=== PATIENT | male | born 1975 | race Caucasian/White ===

== ENCOUNTER → 2018-05-02 | Outpatient (CLI) | payer OTHER | END | disposition home or self-care (01) | LOC: PNCL 08:23 | DX: M79.605 Pain in left leg (principal); M79.604 Pain in right leg; M54.5 Low back pain; I10 Essential (primary) hypertension; K21.9 Gastro-esophageal reflux disease without esophagitis; M19.90 Unspecified osteoarthritis, unspecified site | CPT/HCPCS: 99214 ==

== ENCOUNTER → 2018-05-19 | Outpatient (CLI) | payer OTHER ==
[~2018-05-19] MED LIST: IOHEXOL 180 MG/ML 10 ML VIAL.; LIDOCAINE 1% PF 2 ML VIAL.; methylPREDNISolone ACETATE 40 MG/ML VIAL.; methylPREDNISolone ACETATE 80 MG/ML VIAL.
== END ==
LOC: PNCL 08:45
DX: M51.16 Intervertebral disc disorders with radiculopathy, lumbar region (principal); M48.061 Spinal stenosis, lumbar region without neurogenic claudication; I10 Essential (primary) hypertension; K21.9 Gastro-esophageal reflux disease without esophagitis; M19.90 Unspecified osteoarthritis, unspecified site; Z79.899 Other long term (current) drug therapy
CPT/HCPCS: 62323; J1030; J1040; Q9965

== ENCOUNTER → 2018-05-31 | Outpatient (CLI) | payer OTHER | END | disposition home or self-care (01) | LOC: PNCL 08:58 | DX: M51.16 Intervertebral disc disorders with radiculopathy, lumbar region (principal); M48.061 Spinal stenosis, lumbar region without neurogenic claudication; I10 Essential (primary) hypertension; K21.9 Gastro-esophageal reflux disease without esophagitis | CPT/HCPCS: 99212 ==

== ENCOUNTER → 2018-06-13 | Outpatient (CLI) | payer OTHER ==
[~2018-06-13] MED LIST changes: -LIDOCAINE 1% PF 2 ML VIAL.; +LIDOCAINE 2% PF 2ML VIAL.
== END | disposition home or self-care (01) ==
LOC: PNCL 08:57
DX: M51.16 Intervertebral disc disorders with radiculopathy, lumbar region (principal); M48.061 Spinal stenosis, lumbar region without neurogenic claudication; Z79.899 Other long term (current) drug therapy; I10 Essential (primary) hypertension; K21.9 Gastro-esophageal reflux disease without esophagitis; M19.90 Unspecified osteoarthritis, unspecified site
CPT/HCPCS: 62323; J1030; J1040; J2001; Q9965

== ENCOUNTER → 2018-06-24 | Outpatient (CLI) | payer OTHER ==
[~2018-06-24] MED LIST changes: +CYAN500T40 SL; +HYDR-2762 PO; -IOHEXOL 180 MG/ML 10 ML VIAL.; -LIDOCAINE 2% PF 2ML VIAL.; +RANI300T3 PO; -methylPREDNISolone ACETATE 40 MG/ML VIAL.; -methylPREDNISolone ACETATE 80 MG/ML VIAL.
--- NOTE | 2018-06-24 11:09 | PAIN ---
DATE OF SERVICE: 06/24/2018 PROGRESS NOTE FOR PAIN CLINIC DIAGNOSES: Lumbar radiculopathy with lumbar spinal stenosis and lumbar degenerative disk disease. HISTORY OF PRESENT ILLNESS: The patient is a 42-year-old male who returns for followup status post lumbar epidural steroid injection x 2. The patient reports about 70% improvement overall; now about 60% improvement even today. The patient reports improvement is lasting significantly. The patient states it has been about 3 weeks since his last injection, doing quite well. The pain in the leg is much improved. His foot numbness has gone. Leg issues are essentially resolved. Still some pain on the right side, radiating into the posterior gluteus and posterior thigh in a radicular fashion, but very minimal. The patient reports it is a 3 on a scale of 10 at its worst, 3 on average, 1 at its least and it is a 1 today. The patient reports it is dull, alternating with tight with some pain in the muscles in the low back as well. The patient reports he has been sleeping better at night, had been increasing activity at home as well as returning to work, with some restrictions on lifting of 20 pounds, but doing very well. He has been very careful with his back also, which is helping as well. The patient reports no new motor or sensory deficits. No new bowel or bladder incontinence or other complaints. PHYSICAL EXAMINATION: VITAL SIGNS: The patient's blood pressure is 151/111, pulse 80, respirations 16 and temperature 98.2 degrees Fahrenheit. Weight is 251 pounds. GENERAL: The patient is awake, alert, oriented, appropriate, very pleasant demeanor. HEENT EXAMINATION: Shows normocephalic, atraumatic. Extraocular movements are intact and symmetrical. Oral cavity, mucous membranes are moist and pink. Dentition is intact. NECK: Shows anterior throat supple, without palpable lymphadenopathy noted. Swallow reflex is symmetrical. CHEST: Shows normal on inspection. Breath sounds are clear to auscultation bilaterally. HEART: Shows S1, S2 clear. No murmurs auscultated. BACK: The patient's back shows spine grossly in the midline. Normal-appearing thoracic kyphosis and lumbar lordotic curvature. Lumbar paraspinous muscle shows symmetrical on inspection. On palpation, it shows some moderate tenderness, but only diffusely and very moderately in the low lumbar distribution, slightly more on the right than the left. There is no tenderness over the sacrum, sacroiliac regions or the spinous processes. The patient has good rotational motion of the lumbar spine both laterally as well as extension and flexion without difficulty. LOWER EXTREMITIES: Show deep tendon reflexes at 2+ in the patellar, 1+ in tendo calcaneus tendons. Motor exam is strong with 5/5 dorsiflexion and extension. Peripheral pulses are 1+ posterior tibia. No peripheral edema is noted bilaterally. The patient's straight leg raise is mildly positive on the right, with pain at about 45 degrees, which is decreased with knee flexion into the posterior gluteus and posterior thigh only; left side is negative. Options were discussed with the patient. The patient's old chart was reviewed as was his current medication regimen updated. Current review of systems updated today as well. We will preauthorize the patient for a third in the series of lumbar epidural steroid injections, as the patient has still significant radiculopathy in the right lower extremity in the L5-S1 dermatomal distribution, while doing significantly better, about 70% improvement after the last injection for several weeks following. The patient will continue to do stretching and strengthening exercises on his own; he has been doing some walking as well. We encouraged him to maintain both of these. He will follow up in approximately 2 weeks. We will plan on third epidural steroid injection at that time. CARLOS MANUEL SNIDER MD DR: SAMRA/ileana JOB#: [id number] / [id number]
== END | disposition home or self-care (01) ==
LOC: PNCL 07:56
PROVIDERS: ATTEND Anesthesiology
DX: M51.16 Intervertebral disc disorders with radiculopathy, lumbar region (principal); M48.061 Spinal stenosis, lumbar region without neurogenic claudication
CPT/HCPCS: 99212

== ENCOUNTER → 2018-07-22 | Outpatient (CLI) | payer OTHER ==
[~2018-07-22] MED LIST changes: +IOHEXOL 180 MG/ML 10 ML VIAL. ONE; +LIDOCAINE 2% PF 2ML VIAL. ONE; +methylPREDNISolone ACETATE 40 MG/ML VIAL. ONE; +methylPREDNISolone ACETATE 80 MG/ML VIAL. ONE
--- NOTE | 2018-07-22 10:22 | PAIN ---
DATE OF SERVICE: 07/22/2018 PROGRESS NOTE FOR PAIN CLINIC DIAGNOSES: Lumbar radiculopathy with lumbar degenerative disk disease and lumbar spinal stenosis. HISTORY OF PRESENT ILLNESS: The patient is a 42-year-old male who returns for followup status post lumbar epidural steroid injection x 2. The patient reports he did quite well about 60%-70% improvement in his pain in his legs, are pretty much resolved. The patient reports that the low back is still significantly painful more on the right side than the left in the low back but radiating to the posterior gluteus and posterior thighs. The patient reports it is aching, sharp, dull, burning, rated as a 5 on a scale of 10 at its worst, 2 on average, 1 at its least and is a 2 today. The patient reports no new motor or sensory deficits and no new bowel or bladder incontinence. The patient reports he is sleeping well at night, is not slowing him down significantly. He has been doing some cabinetry work lately, which has put some increased strain on his back but only temporarily and he is able to rest and get the pain back where it is more controlled. The patient reports no new motor or sensory deficits and no new bowel or bladder incontinence or other complaints. PHYSICAL EXAMINATION: VITAL SIGNS: The patient's blood pressure 136/92, pulse 73, respirations 18, temperature 98.1 degrees Fahrenheit and weight is 254 pounds. GENERAL: The patient is awake, alert, oriented, appropriate and very pleasant demeanor. HEENT: Head is normocephalic and atraumatic. Extraocular movements are intact and symmetrical. Oral cavity: Mucous membranes moist and pink. Dentition is intact. NECK: Shows anterior throat supple without palpable lymphadenopathy noted. Swallow reflex symmetrical. CHEST: Shows normal with inspection. Breath sounds are clear to auscultation bilaterally. HEART: Shows S1 and S2 clear. No murmurs are auscultated. ABDOMEN: Soft, nontender and nondistended. BACK: Shows spine grossly in the midline. Normal appearing thoracic kyphosis and lumbar lordotic curvature. Lumbar paraspinous muscle shows symmetrical on inspection and palpation shows some moderate tenderness bilaterally going diffusely without radiation. No tenderness over the sacrum or sacroiliac regions or the spinous processes. The patient shows good rotational motion of the lumbar spine, both laterally as well as extension and flexion without significant increase in pain. EXTREMITIES: The patient's lower extremities show deep tendon reflexes at 2+ in the patellar, 1+ tendo-calcaneus tendons. Motor exam is strong with 5/5 dorsiflexion, extension, quadriceps and hamstring flexion equal. Peripheral pulses are 1+ posterior tibia. No peripheral edema is noted. Options were discussed with the patient. The patient's old chart was reviewed as well as his current medication regimen updated. Current review of systems updated today as well. We will proceed with a third in the series of lumbar epidural steroid injection today with fluoroscopic guidance. Risks were again discussed including, but not limited to bleeding, infection, possibility of epidural hematoma and subsequent neurological compromise, dural puncture, headaches, spinal cord and/or nerve damage, side effects of steroid medication and poor results regarding pain control. The patient understands and wished to proceed. The patient will return to the clinic in approximately 2 weeks for followup, was counseled as to return appointment, activity level and side effects to be aware of. DIAGNOSES: Lumbar radiculopathy with lumbar degenerative disk disease and lumbar spinal stenosis. PROCEDURES: Lumbar epidural steroid injection, translaminar approach, L5-S1 level using C-arm fluoroscopic guidance under sterile prep and drape using local anesthetic. MEDICATION INJECTED: A total of 120 mg Depo-Medrol plus 10 mL of preservative-free normal saline and 2 mL of Isovue for contrast. CONDITION AT DISCHARGE: Stable. The patient tolerated the procedure well and had no complications. CARLOS MANUEL SNIDER MD DR: SAMRA/ileana JOB#: [id number] / [id number]
== END | disposition home or self-care (01) ==
LOC: PNCL 08:06
PROVIDERS: ATTEND Anesthesiology
DX: M51.16 Intervertebral disc disorders with radiculopathy, lumbar region (principal); M48.061 Spinal stenosis, lumbar region without neurogenic claudication
CPT/HCPCS: 62323; J1030; J1040; J2001; Q9965

== ENCOUNTER 2021-08-16 00:26 | Inpatient (IN) | payer OTHER ==
[~2021-08-16] VITALS: Ht 182.9 cm; Wt 115.0 kg
[2021-08-16 00:10] VITALS: BP 125/76
[~2021-08-16 00:26] MED LIST changes: -HYDR-2762 PO; +HYDR-2765 PO; -IOHEXOL 180 MG/ML 10 ML VIAL. ONE; -LIDOCAINE 2% PF 2ML VIAL. ONE; -methylPREDNISolone ACETATE 40 MG/ML VIAL. ONE; -methylPREDNISolone ACETATE 80 MG/ML VIAL. ONE
[2021-08-16] MEDS ORDERED: PIP/TAZO PER PHARMACY MC PRN (01:00)
[2021-08-16] MEDS ORDERED: IV NORMAL SALINE 1000ML BAG 1,000 ML IV SCH (01:00)
[2021-08-16] MEDS ORDERED: ONDANSETRON PF 4 MG/2 ML VIAL. IVP PRN (01:00)
[2021-08-16] MEDS: fentaNYL PF VIAL 100 MCG/2 ML VIAL IVP PRN ×2 (01:19→08:16)
[2021-08-16 03:00] VITALS: BP 118/68
--- NOTE | 2021-08-16 05:26 | NUR ---
patient admitted from [facility] via EMS, Admission care done, plan of care discussed with patient and verbalized understanding.
[2021-08-16] MEDS: PIPERACILLIN/TAZOBACTAM 3.375 GM in IV NORMAL SALINE 50ML 50 ML IV SCH ×2 (05:31→11:29)
[2021-08-16 07:00] VITALS: BP 117/64
[2021-08-16 08:40] LABS: BASO # 0.1 x10^3/uL (0.0-0.2); BASO % 1 % (0-3); EOS # 0.5 x10^3/uL (0.0-0.7); EOS % 4 % (0-3); HEMATOCRIT 44.4 % (39.0-53.0); HEMOGLOBIN 14.7 g/dL (13.0-17.5); LYMPH # 3.3 x10^3/uL (1.0-4.8); LYMPH % 28 % (24-48); MEAN CORPUSCULAR HEMOGLOBIN 29 pg (25-35); MEAN CORPUSCULAR HGB CONC 33 g/dL (31-37); MEAN CORPUSCULAR VOLUME 88 fL (79-100); MONO # 1.3 x10^3/uL (0.0-1.1); MONO % 11 % (0-9); NEUT # 6.4 x10^3/uL (1.8-7.7); NEUT % 56 % (31-73); PLATELET COUNT 243 x10^3/uL (140-400); RED BLOOD COUNT 5.02 x10^6/uL (4.30-5.70); RED CELL DISTRIBUTION WIDTH 13.4 % (11.5-14.5); WHITE BLOOD COUNT 11.5 x10^3/uL (4.0-11.0)
[2021-08-16] MEDS ORDERED: METOPROLOL SUCC 24HR ER 100 MG TAB.ER.24H. PO SCH (09:00)
[2021-08-16] MEDS ORDERED: clonazePAM 0.5 MG TABLET PO PRN (09:00)
[2021-08-16] MEDS ORDERED: MORPHINE SULFATE 4 MG/ML INJ. IV PRN (09:00)
[2021-08-16] MEDS ORDERED: PANTOPRAZOLE IV PUSH 40 MG VIAL. IVP SCH (09:00)
--- NOTE | 2021-08-16 09:44 | NUR ---
Patient stated if Dr is not in to discuss discharge orders by 1200 he may want to leave AMA
[2021-08-16 09:58] LABS: ALBUMIN 3.2 g/dL (3.4-5.0); ALBUMIN/GLOBULIN RATIO 0.8 (1.0-1.7); CALCIUM 8.3 mg/dL (8.5-10.1); CREATININE 0.9 mg/dL (0.7-1.3); GFR 90.8; POTASSIUM 3.8 mmol/L (3.5-5.1); TOTAL BILIRUBIN 0.9 mg/dL (0.2-1.0)
--- NOTE | 2021-08-16 10:01 | HP ---
ADMIT DATE: 08/16/2021 HISTORY OF PRESENT ILLNESS: The patient is a 46-year-old male patient, who apparently has had acute diverticulitis with colovesical fistula for which he apparently underwent resection of the vesical fistula and partial colectomy on 07/17/2021. This was done at [facility]. The patient was originally seen by Dr. Guillen, who referred him to Dr. Gregorio and the surgery was done in association with a urologist at [facility] on 07/17/2021. The patient apparently was on an antibiotics consistently for 3 months prior to surgery. In fact, he was on Keflex 500 mg 3 times a day and metronidazole 500 mg 3 times a day for 3 months prior; but after surgery, he has not taken any antibiotic. His symptoms started about 5 days ago, started with abdominal pain, initially in the right lower quadrant, then in the left upper and left flank area, and eventually, in the suprapubic area. He also complained of hematochezia that started about 7 days ago. His symptoms had apparently gradually worsened such that he eventually came to the Emergency Room of [facility], where he was evaluated extensively. He has had a CT scan of the abdomen and pelvis with intravenous contrast, which showed the patient has wall thickening of the sigmoid colon with adjacent edema to the fact could be from diverticulitis. We would obtain a followup to ensure this appropriately resolved to exclude a colon mass. He also has subcutaneous edema, anterior abdominal wall on the left, with some fluid seen at the musculature of the abdominal wall, could be postoperative in nature if the patient has a history of surgery at this area. The patient was started on IV antibiotic, and in consultation with Dr. Gregorio, the patient was transferred to [facility] for further evaluation. He was kept n.p.o., continued on IV Zosyn, pain medication as well as IV fluid and antiemetic. 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 PAST SURGICAL HISTORY: Significant for left biceps muscle repair, had had EGD and colonoscopy with polypectomy in 2018, he underwent resection of the colovesical fistula and partial colectomy without colostomy on 07/17/2021. ALLERGIES: He has no known drug allergies. MEDICATIONS: He is on hydrocodone 7.5/325 one tablet 3 times a day, Prilosec 20 mg once a day, clonazepam 1 mg daily, Toprol XL 100 mg once a day. FAMILY HISTORY: He is the only child. His mother is , at the age of 60, the cause of which is not clear. His father is still alive at the age of 61. SOCIAL HISTORY: He is , has 2 sons. He smokes a pack a day; does not drink alcohol; however, he smokes marijuana occasionally. He is self-employed, does remodeling. PHYSICAL EXAMINATION: GENERAL: On arrival to the Emergency Room of [facility], he looked well and was clearly in no apparent respiratory distress. There was no pallor, jaundice, cyanosis or thyromegaly. No jugular venous distention. No lower limb edema. VITAL SIGNS: His heart rate was 77, blood pressure was 146/85, temperature was 98.5, respiratory rate was 18 and oxygen saturation was 97%. HEAD, EYES, EARS, NOSE AND THROAT: Normocephalic, atraumatic. NECK: Supple. HEART: Showed normal first and second heart sounds. No gallop, rub or murmur. CHEST: Clear to auscultation. No crepitation or rhonchi. ABDOMEN: Distended. Generalized tenderness, worse in the right lower quadrant, with no rebound or guarding. There is approximately 10 cm surgical scar clean, dry and intact, with no signs of superficial infection. No masses or pulsatile masses. NEUROLOGICAL: He was alert, oriented x 3 with normal motor function. PSYCHOLOGICAL: The affect, judgment and mood were normal. LABORATORY DATA: While in the Emergency Room of [facility], he has had lab work, which showed a white cell count of 13,400, hemoglobin 15.8, hematocrit 46.5, MCV 89 and platelet count 282,000 with normal manual differential. His chemistry showed a serum sodium 139, potassium 4.1, chloride 103, bicarbonate 25, anion gap of 11, BUN 16, creatinine 0.8. Estimated GFR was 104 mL per minute. His glucose was 88. Lactic acid was only 0.7. Calcium was 9.1. Magnesium was 2.2. Total bilirubin, AST, ALT, alkaline phosphatase are normal. Total protein 7.6. Albumin was 4. Serum lipase was 73. IMAGING STUDIES: His chest x-ray showed mild interstitial opacities bilaterally, similar to prior; this may be patient's baseline appearance from interstitial lung disease, but we would correlate with symptoms to ensure that there is not a superimposed mild edema or interstitial infiltrate contributing to this appearance. CT scan of the abdomen and pelvis showed that the patient has wall thickening of the sigmoid colon with adjacent edema to the fact could be from diverticulitis. We would obtain a followup to ensure that this appropriately resolved to exclude the colon mass. There is subcutaneous edema in the anterior abdominal wall on the left side with some fluid seen at the musculature of the abdominal wall, could be postoperative in nature if the patient has a history of surgery at this site. ASSESSMENT AND PLAN: The patient was transferred to [facility] in consultation with Dr. Gregorio. He was kept n.p.o., continued on IV antibiotic in the form of Zosyn 3.375 grams IV every 6 hours, IV fluid, pain medication, antiemetic. We will obviously consult Dr. Gregorio, continue to monitor him closely. LEONIE DR: David TID: [id number]
[2021-08-16 11:00] VITALS: BP 141/84
--- NOTE | 2021-08-16 12:02 | PDOC2 ---
CONSULT Date of Consult Date of Consult DATE: 08/16/21 TIME: 11:54 Reason for Consult Reason for Consult: abd pain Referring Physician Referring Physician: Dr. Ying Identification/Chief Complaint Chief Complaint rectal bleeding, abd pain Source Source: Chart review, Patient History of Present Illness Reason for Visit: 46 yo M s/p lap sigmoid 1 month ago. Was doing well. This week had noted some abd pain and blood on toilet paper. Seen in Er and noted to have elevated WBC. This AM, pt reports feeling better. No N/V. No further blood in stools. Past Medical History Cardiovascular: HTN GI: Diverticulosis Renal/: Other (kidney stones) Past Surgical History Past Surgical History: Colectomy Family History Family History: No Significant Social History Quit Current Medications Current Medications Current Medications Fentanyl Citrate (Fentanyl 2ml Vial) 50 mcg PRN Q3HRS PRN IVP SEVERE PAIN 7-10 Last administered on 08/16/21at 08:16; Start 08/16/21 at 01:00; Stop 08/16/21 at 08:56; Status DC Ondansetron HCl (Zofran) 4 mg PRN Q6HRS PRN IVP NAUSEA/VOMITING 1ST CHOICE; Start 08/16/21 at 01:00 Sodium Chloride 1,000 ml @ 75 mls/hr [id number] IV Last administered on 08/16/21at 01:20; Start 08/16/21 at 01:00 Piperacillin Sod/ Tazobactam Sod (Zosyn Per Pharmacy) 1 each PRN DAILY PRN MC SEE COMMENTS; Start 08/16/21 at 01:00 Piperacillin Sod/ Tazobactam Sod 3.375 gm/Sodium Chloride 50 ml @ 100 mls/hr Q6HRS IV Last administered on 08/16/21at 11:29; Start 08/16/21 at 06:00 Morphine Sulfate (Morphine Sulfate) 4 mg PRN Q4HRS PRN IV PAIN Last administered on 08/16/21at 11:53; Start 08/16/21 at 09:00 Pantoprazole Sodium (PROTONIX VIAL for IV PUSH) 40 mg DAILYAC IVP Last administered on 08/16/21at 09:35; Start 08/16/21 at 09:00 Clonazepam (KlonoPIN) 1 mg PRN Q12HR PRN PO ANXIETY / AGITATION; Start 08/16/21 at 09:00 Metoprolol Succinate (Toprol Xl) 100 mg DAILY PO ; Start 08/16/21 at 09:00 Active Scripts Active Reported Zantac (Ranitidine Hcl) 300 Mg Tablet 1 Tab PO QHS Vitamin B-12 (Cyanocobalamin (Vitamin B-12)) 500 Mcg Tab.subl 500 Mcg SL Allergies Allergies: Coded Allergies: No Known Drug Allergies (Unverified , 07/22/18) ROS Gastrointestinal: Yes Abdominal Pain, Yes Hematochezia Physical Exam General: Alert, Oriented X3, Cooperative, No acute distress HEENT: Atraumatic Lungs: Normal air movement Abdomen: Soft, Other (appropriate TTP at LLQ incision, incision healing well) Vitals VITALS Vital Signs Date Time Temp Pulse Resp B/P (MAP) Pulse Ox O2 Delivery O2 Flow Rate FiO2 08/16/21 11:00 97.6 70 18 141/84 (103) 96 Room Air 97.6 Labs Labs Laboratory Tests Test 08/16/21 07:35 White Blood Count 11.5 x10^3/uL (4.0-11.0) Red Blood Count 5.02 x10^6/uL (4.30-5.70) Hemoglobin 14.7 g/dL (13.0-17.5) Hematocrit 44.4 % (39.0-53.0) Mean Corpuscular Volume 88 fL (79-100) Mean Corpuscular Hemoglobin 29 pg (25-35) Mean Corpuscular Hemoglobin Concent 33 g/dL (31-37) Red Cell Distribution Width 13.4 % (11.5-14.5) Platelet Count 243 x10^3/uL (140-400) Neutrophils (%) (Auto) 56 % (31-73) Lymphocytes (%) (Auto) 28 % (24-48) Monocytes (%) (Auto) 11 % (0-9) Eosinophils (%) (Auto) 4 % (0-3) Basophils (%) (Auto) 1 % (0-3) Neutrophils # (Auto) 6.4 x10^3/uL (1.8-7.7) Lymphocytes # (Auto) 3.3 x10^3/uL (1.0-4.8) Monocytes # (Auto) 1.3 x10^3/uL (0.0-1.1) Eosinophils # (Auto) 0.5 x10^3/uL (0.0-0.7) Basophils # (Auto) 0.1 x10^3/uL (0.0-0.2) Sodium Level 137 mmol/L (136-145) Potassium Level 3.8 mmol/L (3.5-5.1) Chloride Level 103 mmol/L (98-107) Carbon Dioxide Level 26 mmol/L (21-32) Anion Gap 8 (6-14) Blood Urea Nitrogen 13 mg/dL (8-26) Creatinine 0.9 mg/dL (0.7-1.3) Estimated GFR (Cockcroft-Gault) 90.8 BUN/Creatinine Ratio 14 (6-20) Glucose Level 83 mg/dL (70-99) Calcium Level 8.3 mg/dL (8.5-10.1) Total Bilirubin 0.9 mg/dL (0.2-1.0) Aspartate Amino Transf (AST/SGOT) 13 U/L (15-37) Alanine Aminotransferase (ALT/SGPT) 24 U/L (16-63) Alkaline Phosphatase 43 U/L (46-116) Total Protein 7.0 g/dL (6.4-8.2) Albumin 3.2 g/dL (3.4-5.0) Albumin/Globulin Ratio 0.8 (1.0-1.7) Laboratory Tests Test 08/16/21 07:35 White Blood Count 11.5 x10^3/uL (4.0-11.0) Red Blood Count 5.02 x10^6/uL (4.30-5.70) Hemoglobin 14.7 g/dL (13.0-17.5) Hematocrit 44.4 % (39.0-53.0) Mean Corpuscular Volume 88 fL (79-100) Mean Corpuscular Hemoglobin 29 pg (25-35) Mean Corpuscular Hemoglobin Concent 33 g/dL (31-37) Red Cell Distribution Width 13.4 % (11.5-14.5) Platelet Count 243 x10^3/uL (140-400) Neutrophils (%) (Auto) 56 % (31-73) Lymphocytes (%) (Auto) 28 % (24-48) Monocytes (%) (Auto) 11 % (0-9) Eosinophils (%) (Auto) 4 % (0-3) Basophils (%) (Auto) 1 % (0-3) Neutrophils # (Auto) 6.4 x10^3/uL (1.8-7.7) Lymphocytes # (Auto) 3.3 x10^3/uL (1.0-4.8) Monocytes # (Auto) 1.3 x10^3/uL (0.0-1.1) Eosinophils # (Auto) 0.5 x10^3/uL (0.0-0.7) Basophils # (Auto) 0.1 x10^3/uL (0.0-0.2) Sodium Level 137 mmol/L (136-145) Potassium Level 3.8 mmol/L (3.5-5.1) Chloride Level 103 mmol/L (98-107) Carbon Dioxide Level 26 mmol/L (21-32) Anion Gap 8 (6-14) Blood Urea Nitrogen 13 mg/dL (8-26) Creatinine 0.9 mg/dL (0.7-1.3) Estimated GFR (Cockcroft-Gault) 90.8 BUN/Creatinine Ratio 14 (6-20) Glucose Level 83 mg/dL (70-99) Calcium Level 8.3 mg/dL (8.5-10.1) Total Bilirubin 0.9 mg/dL (0.2-1.0) Aspartate Amino Transf (AST/SGOT) 13 U/L (15-37) Alanine Aminotransferase (ALT/SGPT) 24 U/L (16-63) Alkaline Phosphatase 43 U/L (46-116) Total Protein 7.0 g/dL (6.4-8.2) Albumin 3.2 g/dL (3.4-5.0) Albumin/Globulin Ratio 0.8 (1.0-1.7) Images Images CT with wall thickening at surgery site in colon, edema and fluid in surgical incision Assessment/Plan Assessment/Plan Favor gastroenteritis, low suspicion for recurrent diverticulitis. pt encouraged to restart PO abx at home (keflex and flagyl) for one week. F/u in one week. Will need eventual colonoscopy. Thanks for consult! ALFREDO LIRA MD Aug 16, 2021 12:02
[2021-08-16] MEDS ORDERED: METR-111 PO (13:15)
[2021-08-16] MEDS ORDERED: CLONAZEPAM1 MG PO (13:15)
[2021-08-16] MEDS ORDERED: CEPH500C PO (13:15)
--- NOTE | 2021-08-16 13:30 | NUR ---
Patient discharged to home, verbalized understanding of discharge instructions
== END 2021-08-16 13:30 | disposition home or self-care (01) | DRG 392 ==
LOC: 4 NORTH 00:26
PROVIDERS: ADMIT Internal Medicine; ATTEND Internal Medicine
DX: K52.9 Noninfective gastroenteritis and colitis, unspecified (principal); Z87.442 Personal history of urinary calculi; Z90.49 Acquired absence of other specified parts of digestive tract; I10 Essential (primary) hypertension; F12.90 Cannabis use, unspecified, uncomplicated; F17.210 Nicotine dependence, cigarettes, uncomplicated; D72.829 Elevated white blood cell count, unspecified
CPT/HCPCS: 36415; 80053; 85025; C9113; J2270; J2543; J3010; J7030; G0378